=== PATIENT | male | born 1960 | race African-American/Black ===

== ENCOUNTER 2017-01-24 01:23 | Emergency (ER) | payer SELFPAY ==
[~2017-01-24] VITALS: Ht 190.5 cm; Wt 98.0 kg
[2017-01-24] MEDS ORDERED: ONDANSETRON HCL 4MG/2ML VIAL IV STA (02:00)
[2017-01-24] MEDS ORDERED: MORPHINE SULFATE 4 MG/ML CPJ (NOT FOR IM USE) IV STA (02:00)
[2017-01-24] MEDS ORDERED: SODIUM CHLORIDE 0.9% 1,000 ML IV ONE (02:00)
[2017-01-24 02:30] LABS: HEMATOCRIT. 34.2 % (42.0-52.0); HEMOGLOBIN. 11.1 g/dL (14.0-18.0); MEAN CORPUSCULAR HEMOGLOBIN 28.4 pg (28.0-32.0); MEAN CORPUSCULAR VOLUME 87.9 fL (80.0-94.0); MEAN PLATELET VOLUME 9.6 fl (7.4-10.4); PLATELET 200 x1000/uL (130-400); RED CELL DISTRIBUTION WIDTH 13.8 % (11.6-14.6)
[2017-01-24 02:36] LABS: INR 1.6; PROTHROMBIN TIME 16.6 sec (9.4-11.6)
[2017-01-24 03:01] LABS: CARBON DIOXIDE 34 mEq/L (21-32); CHLORIDE 90 mEq/L (98-107)
[2017-01-24] MEDS ORDERED: PHENYTOIN SODIUM 1,000 MG in SODIUM CHLORIDE 0.9% 100 ML IV ONE (03:15)
[2017-01-24] MEDS ORDERED: PROPOFOL 10MG/ML 100ML 100 ML IV SCH (03:15)
[2017-01-24] MEDS ORDERED: ETOMIDATE 2MG/ML 10ML VIAL IV ONE ×2 (03:15→06:00)
[2017-01-24] MEDS ORDERED: NICARDIPINE 100 MG in SODIUM CHLORIDE 0.9% 60 ML IV ONE (03:15)
[2017-01-24] MEDS ORDERED: SUCCINYLCHOLINE CHLORIDE 200MG/10ML VIAL IV ONE ×2 (03:15→06:00)
[2017-01-24] MEDS ORDERED: LABETALOL HCL 20MG/4ML CARPUJECT IV ONE (03:15)
[2017-01-24] MEDS ORDERED: LABETALOL 5MG/ML SYR 20 MG/4 ML SYRINGE IV NR (03:30)
[2017-01-24 03:43] LABS: PLATELET ESTIMATE NORMAL
[2017-01-24 05:01] LABS: BG BASE EXCESS 8.1 mmol/L (-2.0-2.0); BG CARBOXYHEMOGLOBIN 0.3 % (0.5-1.5); BG DEOXYHEMOGLOBIN 5.8 % (0.0-5.0); BG FRACTION INSPIRED OXYGEN 100; BG HCO3 ACT 35.9 mmol/L (22.0-26.0); BG METHEMOGLOBIN 0.7 % (0.0-1.5); BG OXYGEN SATURATION 94.1 % (92.0-98.5); BG OXYHEMOGLOBIN 93.2 % (94.0-97.0); BG PCO2 68.1 mmHg (35.0-45.0); BG PO2 77.9 mmHg (75.0-100.0); BG SAMPLE SITE RIGHT RADIAL; BG TIDAL VOLUME(mL) 500 mL; BG TOTAL HEMOGLOBIN 11.6 g/dL (12.0-18.0); BG VENT MODE VENT - A/C; BG VENT RATE 14 set
[2017-01-24 07:50] VITALS: BP 158/79
[2017-01-24] MEDS ORDERED: PROPOFOL 10MG/ML 100ML 100 ML IV ONE (07:59)
== END 2017-01-24 08:15 | disposition short-term general hospital (02) ==
LOC: ER 01:29
DX: R51 Headache (principal); R11.2 Nausea with vomiting, unspecified; I10 Essential (primary) hypertension; Z87.891 Personal history of nicotine dependence; Z85.118 Personal history of other malignant neoplasm of bronchus and lung
CPT/HCPCS: 31500; 36415; 36430; 36600; 51702; 70450; 71010; 80053; 82375; 82805; 85025; 85610; 86850; 86900; 86901; 86927; 93005; 96365; 96375; 99291; J0330; J1165; J2270; J2405; J2704; J3490; J7030; P9017; Z7610; 31525; 94002; J7050; A4315